=== PATIENT | female | born 1975 | race Caucasian/White ===

== ENCOUNTER 2018-06-13 10:08 | Emergency (ER) | payer MEDICAID ==
[~2018-06-13] VITALS: Ht 142.2 cm; Wt 62.6 kg
[~2018-06-13 10:08] MED LIST: ACET-6134 PO
[2018-06-13 10:15] VITALS: BP 165/89
--- NOTE | 2018-06-13 10:21 | NUR ---
PATIENT AMBULATED TO BED 5 AT THIS TIME
--- NOTE | 2018-06-13 10:25 | NUR ---
42Y/F BIB DTR WITH C/O RUQ ABDOMINAL PAIN THAT STARTED LAST NIGHT, RADIATES TO LOWER ABDOMEN. 11/22, DULL, COMES AND GOES. DENIES N/V/D. PT IS AAOX4, VSS, ACTIVE BS X4 , LBM YESTERDAY 06/12/18, SOFT, BED DOWN, BEDRAIL UP X 1, ER MD AWARE AND NOTIFIED OF PT STATUS. HX: HTN RX: NAME UNKNOWN, FOR BLOOD PRESSURE
[2018-06-13 10:41] LABS: BASOPHILS % (AUTO) 0.4 % (0.0-2.0); EOSINOPHILS # (AUTO) 0.3 K/uL (0-0.4); EOSINOPHILS % (AUTO) 3.4 % (0.0-4.0); HEMATOCRIT 38.9 % (36-48); HEMOGLOBIN 12.6 g/dL (12.0-16.0); LYMPHOCYTES # (AUTO) 2.4 K/uL (2.5-16.5); LYMPHOCYTES % (AUTO) 31.6 % (20.5-51.1); MEAN CORPUSCULAR HEMOGLOBIN 27 pg (27-31); MEAN CORPUSCULAR HGB CONC 32 g/dL (33-37); MONOCYTES # (AUTO) 0.5 K/uL (0.8-1.0); MONOCYTES % (AUTO) 6.2 % (1.7-9.3); NEUTROPHILS # (AUTO) 4.5 K/uL (1.8-7.7); NEUTROPHILS % (AUTO) 58.4 % (42.2-75.2); PLATELET COUNT (AUTO) 245 K/uL (140-450); RED BLOOD CELL COUNT(AUTO) 4.68 MIL/uL (4.20-5.40); RED CELL DISTRIBUTION WIDTH 13.9 % (11.6-13.7); WHITE BLOOD COUNT (AUTO) 7.6 K/uL (4.8-10.8)
[2018-06-13 10:43] LABS: APPEARANCE,URINE CLEAR (CLEAR); BILIRUBIN,URINE NEGATIVE (NEGATIVE); BLOOD, URINE NEGATIVE (NEGATIVE); COLOR,URINE YELLOW (YELLOW); LEUKOCYTE ESTERASE ,URINE NEGATIVE (NEGATIVE); NITRITE, URINE NEGATIVE (NEGATIVE); UGLUCOSE NEGATIVE (NEGATIVE)
[2018-06-13 10:48] LABS: ANION GAP 5.9 (8-16); CARBON DIOXIDE 27.7 mmol/L (21-32); CREATININE 0.9 mg/dL (0.6-1.3); POTASSIUM 3.6 mmol/L (3.5-5.1)
[2018-06-13 10:54] LABS: ALBUMIN 3.8 g/dL (3.4-5.0); TOTAL BILIRUBIN 0.5 mg/dL (0.0-1.0)
--- NOTE | 2018-06-13 12:26 | NUR ---
ER MD EVALUATING PT AT BEDSIDE AT THIS TIME.
[2018-06-13] MEDS ORDERED: KETOROLAC 60 MG/2 ML VIAL IM ONE (12:35)
--- NOTE | 2018-06-13 13:15 | NUR ---
ULTRASOUND AT BEDSIDE AT THIS TIME
[2018-06-13] MEDS ORDERED: MORPHINE SULFATE 4 MG/ML SYR IM ONE (15:10)
[2018-06-13 15:47] VITALS: BP 140/88
--- NOTE | 2018-06-13 15:47 | NUR ---
Patient discharged with v/s stable. Written and verbal after care instructions given and explained. Patient alert, oriented and verbalized understanding of instructions. Ambulatory with steady gait. All questions addressed prior to discharge. ID band removed. Patient advised to follow up with PMD. Rx of MOTRIN, ZOFRAN AND NORCO given. Patient educated on indication of medication including possible reaction and side effects. Opportunity to ask questions provided and answered.
== END 2018-06-13 15:47 | disposition home or self-care (01) ==
LOC: MED 10:08
DX: R10.11 Right upper quadrant pain (principal); I10 Essential (primary) hypertension; Z79.1 Long term (current) use of non-steroidal anti-inflammatories (NSAID)
CPT/HCPCS: 36415; 74176; 76705; 80053; 81003; 81025; 83690; 85025; 96372; 99284; J1885; J2270; Q0092

== ENCOUNTER 2019-04-10 19:25 | Emergency (ER) | payer MEDICAID ==
[~2019-04-10] VITALS: Ht 152.4 cm; Wt 60.3 kg
[2019-04-10 19:31] VITALS: BP 176/91
--- NOTE | 2019-04-10 20:13 | NUR ---
PT AMBULATED TO ER BED 09
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
[2019-04-10 22:35] VITALS: BP 146/92
== END 2019-04-10 22:34 | disposition home or self-care (01) ==
LOC: MED 19:25
DX: M54.5 Low back pain (principal); I10 Essential (primary) hypertension; Z79.899 Other long term (current) drug therapy; V49.9XXA Car occupant (driver) (passenger) injured in unspecified traffic accident, initial encounter; Y93.89 Activity, other specified; Y92.410 Unspecified street and highway as the place of occurrence of the external cause; Y99.8 Other external cause status
CPT/HCPCS: 99283

== ENCOUNTER 2020-01-31 11:26 | Emergency (ER) | payer MEDICAID ==
[~2020-01-31] VITALS: Ht 144.8 cm; Wt 60.9 kg
[2020-01-31 11:52] VITALS: BP 126/83
--- NOTE | 2020-01-31 11:58 | NUR ---
PT AMB TO BED 11. HANDED ON URINE CUP.
[2020-01-31] MEDS ORDERED: ONDANSETRON 4 MG/2 ML VIAL IVP ONE (12:15)
[2020-01-31] MEDS ORDERED: KETOROLAC 30 MG/ML VIAL IVP ONE (12:15)
[2020-01-31] MEDS ORDERED: NACL 0.9% 1,000 ML IV ONE (12:15)
--- NOTE | 2020-01-31 13:02 | NUR ---
BLOOD DRAW HANDED TO [employer]
--- NOTE | 2020-01-31 13:02 | NUR ---
44/F C/O RLQ ABDOMINAL PAIN, N/V X TODAY. NO NAUSEA AT THIS TIME. DENIES DYSURIA. VSS. MED HX: HTN
[2020-01-31 13:09] LABS: BASOPHILS % (AUTO) 0.2 % (0.0-2.0); EOSINOPHILS # (AUTO) 0.2 K/uL (0-0.4); HEMATOCRIT 36.6 % (36-48); HEMOGLOBIN 12.3 g/dL (12.0-16.0); LYMPHOCYTES # (AUTO) 1.8 K/uL (2.5-16.5); MEAN CORPUSCULAR HEMOGLOBIN 27 pg (27-31); MEAN CORPUSCULAR HGB CONC 34 g/dL (33-37); MEAN CORPUSCULAR VOLUME 81.6 fL (80-94); MONOCYTES # (AUTO) 0.4 K/uL (0.8-1.0); MONOCYTES % (AUTO) 5.6 % (1.7-9.3); NEUTROPHILS # (AUTO) 5.6 K/uL (1.8-7.7); NEUTROPHILS % (AUTO) 70.2 % (42.2-75.2); PLATELET COUNT (AUTO) 258 K/uL (140-450); RED BLOOD CELL COUNT(AUTO) 4.49 MIL/uL (4.20-5.40); RED CELL DISTRIBUTION WIDTH 14.4 % (11.6-13.7)
--- NOTE | 2020-01-31 13:19 | NUR ---
TO CT SCAN VIA W/C
[2020-01-31 13:22] LABS: ALBUMIN 3.9 g/dL (3.4-5.0); ANION GAP 13.9 (8-16); CARBON DIOXIDE 25.3 mmol/L (21-32); POTASSIUM 3.2 mmol/L (3.5-5.1); TOTAL BILIRUBIN 0.3 mg/dL (0.0-1.0)
--- NOTE | 2020-01-31 14:36 | NUR ---
Patient discharged with v/s stable. Written and verbal after care instructions given and explained. Patient alert, oriented and verbalized understanding of instructions. Ambulatory with steady gait. All questions addressed prior to discharge. ID band removed. Patient advised to follow up with PMD. Rx of MOTRIN, TRAMADOL, ZOFRAN given. Patient educated on indication of medication including possible reaction and side effects. Opportunity to ask questions provided and answered.
[2020-01-31 14:37] VITALS: BP 133/75
== END 2020-01-31 14:36 | disposition home or self-care (01) ==
LOC: MED 11:26
DX: N20.0 Calculus of kidney (principal); I10 Essential (primary) hypertension; Z79.899 Other long term (current) drug therapy
CPT/HCPCS: 36415; 74176; 80053; 81025; 85025; 96361; 96374; 96375; 99284; J1885; J2405; J7030

== ENCOUNTER 2022-07-27 23:00 | Emergency (ER) | payer MEDICAID ==
[~2022-07-27] VITALS: Ht 142.2 cm; Wt 58.1 kg
[~2022-07-27 23:00] MED LIST changes: +ACET-10509 PO; -ACET-6134 PO
[2022-07-27 23:05] VITALS: BP 182/96
--- NOTE | 2022-07-27 23:09 | NUR ---
Dr. Mayorga examining patient.
--- NOTE | 2022-07-27 23:10 | NUR ---
Call code brain.
--- NOTE | 2022-07-27 23:25 | NUR ---
[facility] AT BEDSIDE.
--- NOTE | 2022-07-27 23:28 | NUR ---
2328 [facility] AT BEDSIDE; ETA TO [facility]
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
== END 2022-07-27 23:28 | disposition short-term general hospital (02) ==
LOC: MED 23:00
DX: R53.1 Weakness (principal); I10 Essential (primary) hypertension; R51.9 Headache, unspecified; R11.2 Nausea with vomiting, unspecified
CPT/HCPCS: 99285